=== PATIENT | female | born 2005 | race Two or more races ===

== ENCOUNTER 2023-12-11 09:53 | Outpatient (AMB) | payer BC, SELFPAY ==
[2023-12-11 10:02] VITALS: BP 100/66; PULSE 67; O2SAT 98; BMI 18.5
--- NOTE | 2023-12-11 10:02 | MHC.PC.OV ---
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 Allergies No Known Allergies Allergy (Verified 12/11/23 10:08) Medication List - Last Reconciled 12/11/23 by Johnathan Dewitt MD No Known Home Meds Tobacco use date assessed: 12/11/23 Dental Screening Dental Screen Date: 12/11/23 Did you have a dental visit in the last 12 months?: Yes Did you have a dental problem in the last 6 months where you did not have access to dental care?: No Was dental information given to patient?: Patient has dentist HPI EMPLOYEE SERVICES MANAGER/Requesting PE HPI Details New Patient? ?? Prior PCP:?No PCP in a long time, last PCP in [place] Last office visit/CPE:?>4 years Acute issue(s):? Double?vision -Reports double vision when looking at a screen. Started a couple weeks ago. Anxiety -Under anxiety/stress. Has been seeing a therapist. She reports she was diagnosed with generalized anxiety disorder. -Has not been on any meds for anxiety. ?? PMHx:?Anxiety, Double vision, Autism spectrum SurgHx:?None FHx:?Mom: Healthy. Dad: HTN. GM: HTN. GF: HTN SocHx:?Nonsmoker. EtOH none. No drugs. HPI Comments History of Present Illness Details Documentation assistance for Johnathan Dewitt MD, was provided by [employer],? Farm Contractor Buyer on 12/11/2023 at 10:34 AM EST. I, Dr. Dewitt, have read, observed, and verified documentation. [facility] Medical History (Updated 12/11/23 @ 10:58 by Johnathan Dewitt MD) Anxiety Autism No pertinent past medical history Surgical History (Updated 12/11/23 @ 10:10 by Nat Vieira CMA) No pertinent past surgical history Family History (Updated 12/11/23 @ 10:13 by Nat Vieira CMA) Father High blood pressure Maternal Grandmother High blood pressure Paternal Grandmother High blood pressure Social History (Updated 12/11/23 @ 10:18 by Nat Vieira CMA) Household Members: Family Both parents involved: Yes Caregiver staying overnight: No Housing: House Are you a primary career portals teacher to a significant other at home: No Do you presently have visiting nurse or other home services: No 75 years or older and lives alone: No Alcohol intake: never Patient Tobacco Use Status: Never used Tobacco e-Cigarette/Vaping Use: Never Used Use of substances other than those prescribed or required for medical reasons: No Have you been hit, kicked, punched, or otherwise hurt by someone within the past year? If so, by whom?: No Do you feel safe in your current relationship?: No Current Relationship Is there a partner from a previous relationship who is making you feel unsafe now?: No Are you made to feel afraid or neglected: No Special dennis needs: No Are you DNR?: No Advance Directives: No Advance Directives Information Provided: No Advance Directives on File: No Healthcare Proxy: No service: No Current occupational status: student Cognitive needs: No Hearing needs: No Vision needs: No Questionnaire PHQ-9 Over the last 2 weeks, how often have you been bothered by any of the following problems? 1. Little interest or pleasure in doing things: not at all 2. Feeling down, depressed, or hopeless: not at all 3. Trouble falling or staying asleep, or sleeping too much: several days 4. Feeling tired or having little energy: not at all 5. Poor appetite or overeating: not at all 6. Feeling bad about yourself - or that you are a failure or have let yourself or your family down: several days 7. Trouble concentrating on things, such as reading the newspaper or watching television: several days 8. Moving or speaking so slowly that other people could have noticed. Or the opposite - being so fidgety or restless that you have been moving around a lot more than usual: several days 9. Thoughts that you would be better off or of hurting yourself in some way: not at all Total score: 4 Depression Screening Interpretation: Negative Depression Screening Done: Yes 71296 - PHQ-9 Billing: Yes Source: Developed by Drs. Francois L. PratimaElla weber Kurt Kroenke and colleagues, with an educational arash from [employer]. Thrive Questionnaire Date Thrive assessed: 12/11/23 I am a: Patient What is your living situation today?: I have a steady place to live Within the past 12 months, did the food you bought not last and you didn't have the money to get more?: Never true Within the past 12 months, did you worry whether your food would run out before you got money to buy more?: Never true Do you have trouble paying for medicines?: No Do you have trouble getting transportation to medical appointments?: No Do you have trouble paying your heating and electricity bill?: No Do you have trouble taking care of your child, family member or friend?: No Do you have trouble with day-to-day activities such as bathing, preparing meals, shopping, managing finances, etc.?: No Are you currently unemployed and looking for a job?: No Are you interested in more education?: No THRIVE Score: 0 MANOJ-7 AMB Questionnaire MANOJ-7 Date MANOJ - 7 assessed: 12/11/23 Feeling nervous, anxious, or on edge: 3 = Nearly every day Not being able to stop or control worryin = More than half the days Worrying too much about different things: 3 = Nearly every day Trouble relaxin = More than half the days Being so restless that it is hard to sit still: 0 = Not at all Becoming easily annoyed or irritable: 2 = More than half the days Feeling afraid as if something awful might happen: 2 = More than half the days Total MANOJ-7 score (0-4 normal; 5-9 mild; 10-14 moderate; 15-21 severe): 14 Source: Developed by Drs. Francois Andujar, Sanjiv Knox and colleagues, with an educational arash from [employer]. MANOJ-7 Assessment Billing MANOJ-7 Assessment Tool: MANOJ-7 Assessment 11814 Review of Systems Const Denies chills, Denies fatigue, Denies fever(s), Denies headache(s) and Denies weakness ENT Denies dizziness and Denies headache(s) Card Denies dyspnea Resp Denies cough, Denies dyspnea, Denies wheezing and Denies other (shortness of breath) Musc Denies numbness and Denies tingling Neuro Denies dizziness, Denies headache(s), Denies numbness, Denies tingling and Denies weakness Psych Reports anxiety Endo Denies fatigue Aller/Immun Denies wheezing Physical exam (Primary Care) Vital Signs: Last Vital Signs Pulse 67 12/11/23 10:02 BP 100/66 12/11/23 10:02 Pulse Ox 98 12/11/23 10:02 Oxygen Delivery Method Room Air 12/11/23 10:02 BMI result Body Mass Index 18.5 Tobacco/Smoking Status: Tobacco use Status Tobacco use date assessed 12/11/23 12/11/23 10:23 Patient Tobacco Use Status Never used Tobacco 12/11/23 10:23 e-Cigarette/Vaping Use Never Used 12/11/23 10:23 PHQ-9: PHQ-9 Score PHQ-9: Total score 4 12/11/23 10:27 Depression Screening Interpretation: Negative Thrive Assessment: Date of Thrive Assessment Date Thrive assessed 12/11/23 12/11/23 10:23 Const General: well developed; No acute distress Nutritional Appearance: well nourished Orientation/consciousness: patient oriented x3 [facility] Head: Yes normocephalic and Yes atraumatic Eyes General: appearance normal, both eyes and all related structures Pupils: Equal, round and reactive pupils present EOM: EOMs intact bilaterally Resp Effort & Inspection: normal respiratory effort Auscultation: clear to auscultation bilaterally Cardio Rate: regular rate Rhythm: regular rhythm Heart sounds: S1 normal heart sound present, S2 normal heart sound present, no gallops, no murmurs and no rubs Neuro General: patient oriented x3 and gait normal Cranial nerves: Yes CN's II-XII intact bilaterally, Yes Facial sensation intact/muscles of mastication intact, Yes Equal, round and reactive pupils present, Yes Bilaterally intact EOM present, No Nystagmus not present (Some nystagmus of the eye ) and Yes Normal facial strength present Psych Affect: normal affect Office Procedures Vision Screening Right Eye: 20/13 Left Eye: 20/15 Bilateral: 20/10 14289 - Vision Screening Assessment and Plan Assessment & Plan (1) Anxiety: Code(s): F41.9 - Anxiety disorder, unspecified Plan: Patient?followed?by?therapist. We?discussed?1st?and?2nd?line?medications?for?anxiety?and?she?declines?these?for?now. I?let?her?know?that?we?can?readdress?this?if?she?would?like?to?consider?them?at?some?point. (2) Double vision: Code(s): H53.2 - Diplopia Plan: Unclear?cause Mild?nystagmus?with?far?lateral?gaze She?has?been?under?stress?and?studying?and?vision?change?may?be?associated?with?fatigue. The?remainder?of?her?neuro?exam?was?within?normal?limits Referred?to?ophthalmology (3) Autism: Code(s): F84.0 - Autistic disorder Plan: Stable (4) Underweight: Code(s): R63.6 - Underweight Plan: Patient?notes?that?she?has?always?been?very?thin?and?family?is?then?as?well. Denies?any?appetite?problems We?can?monitor (5) Screening for STD (sexually transmitted disease): Code(s): Z11.3 - Encounter for screening for infections with a predominantly sexual mode of transmission Plan: Check?lab (6) Laboratory exam ordered as part of routine general medical examination: Code(s): Z00.00 - Encounter for general adult medical examination without abnormal findings Plan: Check?lab Orders: Orders Complete Blood Count Auto Diff Today Z00.00 - Encounter for general adult medical examination without abnormal findings Lipid Panel Today Z00.00 - Encounter for general adult medical examination without abnormal findings Microalbumin, Random (w Creat) Today I10 - Essential (primary) hypertension TSH reflex Free T4 Today Z00.00 - Encounter for general adult medical examination without abnormal findings Erythrocyte Sedimentation Rate Today H53.2 - Diplopia CRP High Sensitivity Today H53.2 - Diplopia Comprehensive [place]. Panel Fast Today Z00.00 - Encounter for general adult medical examination without abnormal findings UA and rflx microscopic Today Z00.00 - Encounter for general adult medical examination without abnormal findings AMB Vision Screening Today H53.2 - Diplopia Referrals Ophthalmology Referral H53.2 - Diplopia Coding Level of Care Code New Pt Level 3 (30464) Diagnoses Anxiety F41.9 Double vision H53.2 Autism F84.0 Underweight R63.6 Screening for STD (sexually transmitted disease) Z11.3 Laboratory exam ordered as part of routine general medical examination Z00.00 CPT Codes Vision Screening - Vision Screenin - Vision Screening ([id number]) Additional Codes MANOJ-7 Assessment Billing - MANOJ-7 Assessment Tool: MANOJ-7 Assessment 49506 ([id number])
== END 2023-12-11 10:56 | disposition home or self-care (01) ==
PROVIDERS: PCP Family Medicine; Visit Provider Family Medicine
DX: H53.2 Diplopia (principal); F41.9 Anxiety disorder, unspecified; R63.6 Underweight; F84.0 Autistic disorder; Z11.3 Encounter for screening for infections with a predominantly sexual mode of transmission; Z01.01 Encounter for examination of eyes and vision with abnormal findings
CPT/HCPCS: 96127; 99173; 99203

== ENCOUNTER 2023-12-14 10:58 | Outpatient (REF) | payer BC, SELFPAY ==
[2023-12-14 14:07] LABS: Appearance Urine Turbid; Color Urine Yellow; Glucose Urine UA Negative (Negative); Leukocyte Esterase Urine Small (1+) (Negative); Nitrite Urine Negative (Negative); PH 5.5 (5.0-9.0); Specific Gravity - Urine 1.025 (1.005-1.025); UMIC TRIGGER UA YES; Urine Blood Negative (Negative); Urine Ketones Trace mg/dL (Negative); Urine Protein Negative (Neg-Trace)
[2023-12-14 14:09] LABS: Bacteria Urine Trace (None Seen); Hyaline Casts Urine 0-2 /LPF (0-2); RBC Urine 0-2 /HPF (0-2)
[2023-12-14 14:21] LABS: MANUAL DIFF FLAG NO
[2023-12-14 14:26] LABS: Basophils Percent Auto 0.3 % (0-2); Eosinophils Percent Auto 0.8 % (0-4); Hematocrit 39.1 % (37.0-47.0); Hemoglobin 12.7 g/dl (12.0-16.0); Lymphocytes Absolute Auto 1.6 X10*3/uL (1.2-4.9); Mean Corpuscular HGB Conc 32.5 g/dl (31.0-35.0); Mean Corpuscular Hemoglobin 30.2 pg (27.0-33.0); Mean Corpuscular Volume 92.9 fL (80.0-98.0); Mean Platelet Volume 11.7 fL (9.4-12.3); Monocytes Absolute Auto 0.5 X10*3/uL (0.1-1.2); Neutrophils Absolute Auto 1.8 x10*3/uL (2.0-8.3); Neutrophils Percent Auto 45.9 % (45-73); Platelet Count 288 X10*3/uL (160-400); Red Blood Count 4.21 X10*6/uL (4.20-5.50); Red Cell Distribution Width 13.7 % (11.0-16.0); White Blood Count 3.9 X10*3/uL (4.8-10.8)
[2023-12-14 15:02] LABS: Creatinine Urine 218.14 mg/dL; Microalbum/Creatinine Ratio Ur 8.7 ug/mg cr (<30)
[2023-12-14 15:13] LABS: Alanine Aminotransferase 20 U/L (0-31); Albumin Level 4.7 g/dL (3.5-5.0); Alkaline Phosphatase 56 U/L (39-117); Anion Gap 11 (12-20); Aspartate Amino Transferase 20 U/L (5-31); Bilirubin Total 0.9 mg/dL (0.0-1.0); Blood Urea Nitrogen 17 mg/dL (9-16); Calcium 9.9 mg/dL (8.4-10.2); Carbon Dioxide 27 mmol/L (22-29); Chloride 104 mmol/L (96-108); Cholesterol 223 mg/dL (<200); Erythrocyte Sedimentation Rate 7 MM/HR (0-20); Estimated Glomerular Filt Rate > 60; Glucose Fasting 75 mg/dL (60-99); HDL Cholesterol 70 mg/dL (>40); LDL Cholesterol Calculated 143 mg/dL (<100); Potassium 3.7 mmol/L (3.3-5.1); Sodium 138 mmol/L (135-145); Total Protein 8.1 g/dL (6.5-8.0); Triglycerides 54 mg/dL (<150)
[2023-12-14 15:15] LABS: TSH reflex Free T4 1.29 uIU/mL (0.32-4.0)
[2023-12-15 09:22] LABS: CRP High Sensitivity <0.2 mg/L
== END 2023-12-14 10:59 | disposition home or self-care (01) ==
LOC: HO.WFDLDS 10:58
PROVIDERS: Visit Provider Family Medicine
DX: Z00.00 Encounter for general adult medical examination without abnormal findings (principal); H53.2 Diplopia; I10 Essential (primary) hypertension
CPT/HCPCS: 36415; 80053; 80061; 81001; 82043; 82570; 84443; 85025; 85652; 86141

== ENCOUNTER 2024-03-14 10:19 | Outpatient (AMB) | payer OTHER, SELFPAY ==
--- NOTE | 2024-03-14 10:32 | MHC.PC.OV ---
Vital Signs 03/14/24 10:39 Height 5 ft 2 in Weight 106 lb 6 oz BMI 19.5 BP 90/58 L Blood Pressure Location Lt brachial Position Sitting Respiration 12 Pulse 62 Pulse Source Pulse Oximeter Temp 97.7 F Temp Source Tympanic Pulse Oximetry (%) 100 Oxygen Delivery Method Room Air Intake Visit Reasons: CPE with f/u labs and health Intake Note: CPE Is last menstrual period known: Yes Last menstrual period: 02/28/24 Post menopausal: No Patient : No Allergies No Known Allergies Allergy (Verified 03/14/24 10:33) Tobacco use date assessed: 03/14/24 Dental Screening Dental Screen Date: 03/14/24 Did you have a dental visit in the last 12 months?: Yes Did you have a dental problem in the last 6 months where you did not have access to dental care?: No Was dental information given to patient?: Patient has dentist HPI HPI Comments History of Present Illness Details This is a 18 year old female with a pmhx of autism, double vision, low weight and anxiety presenting for a physical exam. We reviewed her lab results. She has mild hyperlipidemia. WBC also mildly decreased and total protein 8.1. She will repeat these tests. Reviewed lifestyle modifications for hyperlipidemia. TSH wnl. She gained weight since last visit. States it is a family trait to be low weight. She saw the eye doctor for the double vision she reported to Dr. Dewitt. She is getting a second opinion. She continues to see a therapist for anxiety. ROS: Constitutional: No unexplained weight loss, fever, chills, fatigue or night sweats. Eyes: No eye pain, eye redness, eye discharge. ENT: No hearing loss, sneezing, congestion, runny nose or sore throat. Respiratory: No shortness of breath, cough or sputum production. Cardiovascular: No chest pain, chest pressure or chest discomfort. No palpitations or pedal edema. Gastrointestinal: No anorexia, nausea, vomiting or diarrhea. No abdominal pain or blood in stool. Genitourinary: No dysuria, hematuria, urinary frequency. Neurologic: No headache, dizziness, syncope, unilateral weakness, ataxia, numbness or tingling in the extremities. Musculoskeletal: No muscle pain, back pain, joint pain or swelling. Hematologic/Lymphatics: No bleeding or bruising. No painful lymph nodes. Skin: No rash or itching. Endocrine: No cold or heat intolerance. No polyuria or polydipsia. Psychiatric: No depression. No SI/HI. Physical exam: Constitutional: Alert, in no distress. Head: Normocephalic. Eyes: Pupils are equal, round and reactive to light. Extraocular muscles intact. Ear, Nose and Throat: Canals clear. TMs normal. Normal nasal mucosa. No nasal discharge. No oral lesions. Neck: Supple, Full range of motion. No lymphadenopathy. No palpable thyroid masses. Respiratory: Clear to auscultation. Cardiovascular: S1 S2 regular. No murmurs. Gastrointestinal: Abdomen soft, non-tender, non-distended. Normal bowel sounds. No palpable masses. Neurologic: No focal neurological deficits. Symmetric patellar reflexes. Moves all extremities spontaneously. Sensation intact bilaterally. Skin: No rashes Musculoskeletal: No gross deformities. Normal range of motion. Extremities: Warm and well perfused. No clubbing, cyanosis or edema. 3+ peripheral pulses bilaterally. Psychiatric: Normal mood and affect [facility] Medical History (Updated 03/14/24 @ 12:55 by SALENA Sue) Hyperlipidemia Abnormal CBC Anxiety Autism No pertinent past medical history Surgical History (Updated 12/11/23 @ 10:10 by Nat Vieira CMA) No pertinent past surgical history Family History (Updated 12/11/23 @ 10:13 by Nat Vieira CMA) Father High blood pressure Maternal Grandmother High blood pressure Paternal Grandmother High blood pressure Social History (Updated 03/14/24 @ 10:34 by Fuentes Medina MA) Household Members: Family Housing: House Are you a primary post anesthesia care unit nurse to a significant other at home: No Do you presently have visiting nurse or other home services: No Alcohol intake: never Patient Tobacco Use Status: Never used Tobacco e-Cigarette/Vaping Use: Never Used Special dennis needs: No service: No Current occupational status: student Cognitive needs: No Hearing needs: No Vision needs: No Female Reproductive History Menstrual Date of last menstrual period: 02/28/24 Questionnaire PHQ-9 Over the last 2 weeks, how often have you been bothered by any of the following problems? 1. Little interest or pleasure in doing things: not at all 2. Feeling down, depressed, or hopeless: not at all 3. Trouble falling or staying asleep, or sleeping too much: not at all 4. Feeling tired or having little energy: not at all 5. Poor appetite or overeating: not at all 6. Feeling bad about yourself - or that you are a failure or have let yourself or your family down: not at all 7. Trouble concentrating on things, such as reading the newspaper or watching television: nearly every day 8. Moving or speaking so slowly that other people could have noticed. Or the opposite - being so fidgety or restless that you have been moving around a lot more than usual: not at all 9. Thoughts that you would be better off or of hurting yourself in some way: not at all Total score: 3 Depression Screening Interpretation: Negative Depression Screening Done: Yes 12332 - PHQ-9 Billing: Yes Source: Developed by Drs. Francois Andujar, Ella Richmond, Sanjiv Christy and colleagues, with an educational arash from [employer]. Thrive Questionnaire Date Thrive assessed: 03/14/24 I am a: Patient What is your living situation today?: I have a steady place to live Within the past 12 months, did the food you bought not last and you didn't have the money to get more?: Never true Within the past 12 months, did you worry whether your food would run out before you got money to buy more?: Never true Do you have trouble paying for medicines?: No Do you have trouble getting transportation to medical appointments?: No Do you have trouble paying your heating and electricity bill?: No Do you have trouble taking care of your child, family member or friend?: No Do you have trouble with day-to-day activities such as bathing, preparing meals, shopping, managing finances, etc.?: No Are you currently unemployed and looking for a job?: Yes Are you interested in more education?: Yes Please select the resources that you would like help with: None Currently or been in a relationship where the following occur: No concerns reported THRIVE Score: 0 AUDIT C Alcohol Use Questionnaire (AUDIT-C) 1. How often do you have a drink containing alcohol?: Never 3. How often do you have six or more drinks on one occasion?: Never Total Score: 0 Score Reviewed/Action Taken: Yes MANOJ-7 AMB Questionnaire MANOJ-7 Date MANOJ - 7 assessed: 03/14/24 Feeling nervous, anxious, or on edge: 3 = Nearly every day Not being able to stop or control worryin = Nearly every day Worrying too much about different things: 3 = Nearly every day Trouble relaxin = Nearly every day Being so restless that it is hard to sit still: 0 = Not at all Becoming easily annoyed or irritable: 1 = Several days Feeling afraid as if something awful might happen: 2 = More than half the days Total MANOJ-7 score (0-4 normal; 5-9 mild; 10-14 moderate; 15-21 severe): 15 Source: Developed by Drs. Francois Andujar, Ella Richmond, Sanjiv Christy and colleagues, with an educational arash from [employer]. MANOJ-7 Assessment Billing MANOJ-7 Assessment Tool: MANOJ-7 Assessment 93819 Physical exam (Primary Care) Vital Signs: Last Vital Signs Temp 97.7 F 03/14/24 10:39 Pulse 62 03/14/24 10:39 Resp 12 03/14/24 10:39 BP 90/58 L 03/14/24 10:39 Pulse Ox 100 03/14/24 10:39 Oxygen Delivery Method Room Air 03/14/24 10:39 BMI result Body Mass Index 19.5 Tobacco/Smoking Status: Tobacco use Status Tobacco use date assessed 03/14/24 03/14/24 10:42 Patient Tobacco Use Status Never used Tobacco 03/14/24 10:42 e-Cigarette/Vaping Use Never Used 03/14/24 10:42 PHQ-9: PHQ-9 Score PHQ-9: Total score 3 03/14/24 12:57 Depression Screening Interpretation: Negative Thrive Assessment: Date of Thrive Assessment Date Thrive assessed 03/14/24 03/14/24 10:42 Currently or been in a relationship where the following occur: No concerns reported Assessment and Plan Assessment & Plan (1) Routine physical examination: Code(s): Z00.00 - Encounter for general adult medical examination without abnormal findings Plan: Patient is seen today for a routine physical. As part of this visit we reviewed the following issues, which are considered and essential part of preventative health in this age group: - Breast Cancer screening - Annual Tire Shop Manager exam -due [facility] 2024. - Blood pressure screening - Cholesterol screening - Osteoporosis prevention including calcium/vitamin D intake, weight bearing exercise & smoking cessation - Nutritional and exercise counseling - Counseling of injury prevention including fire prevention, smoke alarms and seat belt usage - Screening for depression - Prevention of and/or testing for infectious diseases - patient declines since she is not SA - Education about skin cancer - Recommendation of an eye exam - Screening for substance abuse (2) Double vision: Code(s): H53.2 - Diplopia (3) Anxiety: Code(s): F41.9 - Anxiety disorder, unspecified (4) Abnormal CBC: Code(s): R79.89 - Other specified abnormal findings of blood chemistry (5) Hyperlipidemia: Code(s): E78.5 - Hyperlipidemia, unspecified Qualifiers: Hyperlipidemia type: pure hypercholesterolemia Qualified Code(s): E78.00 - Pure hypercholesterolemia, unspecified Plan CPE in 1 year. Orders: Orders Total Protein Today R79.89 - Other specified abnormal findings of blood chemistry Complete Blood Count Auto Diff Today R79.89 - Other specified abnormal findings of blood chemistry Coding Level of Care Code Est Pt Prev Care 18-39y(54370) Diagnoses Routine physical examination Z00.00 Double vision H53.2 Anxiety F41.9 Abnormal CBC R79.89 Pure hypercholesterolemia E78.00 Hyperlipidemia type: pure hypercholesterolemia Additional Codes MANOJ-7 Assessment Billing - MANOJ-7 Assessment Tool: MANOJ-7 Assessment 14693 ([id number])
[2024-03-14 10:39] VITALS: BP 90/58; PULSE 62; RESP 12; TEMP 36.5; O2SAT 100; BMI 19.5
== END 2024-03-14 11:12 | disposition home or self-care (01) ==
PROVIDERS: PCP Family Medicine; Visit Provider Physician Assistant Medical
DX: Z00.00 Encounter for general adult medical examination without abnormal findings (principal); H53.2 Diplopia; F41.9 Anxiety disorder, unspecified; R79.89 Other specified abnormal findings of blood chemistry; E78.00 Pure hypercholesterolemia, unspecified
CPT/HCPCS: 99395

== ENCOUNTER 2024-03-14 11:29 | Outpatient (REF) | payer BC, SELFPAY ==
[2024-03-14 14:27] LABS: MANUAL DIFF FLAG NO
[2024-03-14 14:41] LABS: Basophils Percent Auto 0.5 % (0-2); Eosinophils Percent Auto 0.6 % (0-4); Hematocrit 41.1 % (37.0-47.0); Hemoglobin 13.3 g/dl (12.0-16.0); Imm Gran Abs Auto 0.02 X10*3/uL (0.00-0.03); Imm Gran Pct Auto 0.3 % (0.0-0.4); Lymphocytes Percent Auto 32.2 % (20-40); Mean Corpuscular HGB Conc 32.4 g/dl (31.0-35.0); Mean Corpuscular Hemoglobin 30.4 pg (27.0-33.0); Mean Corpuscular Volume 94.1 fL (80.0-98.0); Mean Platelet Volume 11.5 fL (9.4-12.3); Monocytes Absolute Auto 0.6 X10*3/uL (0.1-1.2); Monocytes Percent Auto 10.2 % (2-11); Neutrophils Absolute Auto 3.5 x10*3/uL (2.0-8.3); Neutrophils Percent Auto 56.2 % (45-73); Platelet Count 294 X10*3/uL (160-400); Red Blood Count 4.37 X10*6/uL (4.20-5.50); Red Cell Distribution Width 13.7 % (11.0-16.0); White Blood Count 6.3 X10*3/uL (4.8-10.8)
[2024-03-14 15:02] LABS: Total Protein 7.8 g/dL (6.5-8.0)
== END 2024-03-14 11:30 | disposition home or self-care (01) ==
LOC: HO.WFDLDS 11:29
PROVIDERS: Visit Provider Physician Assistant Medical
DX: R79.89 Other specified abnormal findings of blood chemistry (principal)
CPT/HCPCS: 36415; 84155; 85025

== ENCOUNTER 2025-03-20 08:56 | Outpatient (AMB) | payer OTHER, SELFPAY ==
[2025-03-20 08:59] VITALS: BP 108/62; PULSE 72; O2SAT 99; BMI 19.0
--- NOTE | 2025-03-20 08:59 | MHC.PC.OV ---
Vital Signs 03/20/25 08:59 Height 5 ft 2 in Weight 104 lb 2 oz BMI 19.0 BP 108/62 Blood Pressure Location Rt brachial Position Sitting Pulse 72 Pulse Source Pulse Oximeter Pulse Oximetry (%) 99 Oxygen Delivery Method Room Air Intake Visit Reasons: cpe Allergies No Known Allergies Allergy (Verified 03/20/25 09:01) Medication List - Last Reconciled 03/20/25 by Johnathan Dewitt MD No Known Home Meds Tobacco use date assessed: 03/20/25 Dental Screening Dental Screen Date: 03/20/25 Did you have a dental visit in the last 12 months?: Yes Did you have a dental problem in the last 6 months where you did not have access to dental care?: No Was dental information given to patient?: Patient has dentist HPI cpe HPI Details 19 y/o female presents for a CPE with f.u labs and health maintenance. No recent labs to review. Had talked about some double vision last year. Had seen an eye doctor but she notes she had declined further work-up. HPI Comments History of Present Illness Details Documentation assistance for Johnathan Dewitt MD, was provided by [employer], Printing Equipment Mechanic Apprentice on at 9::09 AM BENITA. I, Dr. Dewitt, have read, observed, and verified documentation. [facility] Medical History Hyperlipidemia Abnormal CBC Anxiety Autism No pertinent past medical history Surgical History No pertinent past surgical history Family History Father High blood pressure Maternal Grandmother High blood pressure Paternal Grandmother High blood pressure Social History Household Members: Family Both parents involved: Yes Caregiver staying overnight: No Housing: House Are you a primary career center director to a significant other at home: No Do you presently have visiting nurse or other home services: No 75 years or older and lives alone: No Alcohol intake: never Patient Tobacco Use Status: Never used Tobacco e-Cigarette/Vaping Use: Never Used Special dennis needs: No service: No Current occupational status: student Cognitive needs: No Hearing needs: No Vision needs: No Questionnaire PHQ-9 Over the last 2 weeks, how often have you been bothered by any of the following problems? 1. Little interest or pleasure in doing things: not at all 2. Feeling down, depressed, or hopeless: not at all 3. Trouble falling or staying asleep, or sleeping too much: not at all 4. Feeling tired or having little energy: not at all 5. Poor appetite or overeating: not at all 6. Feeling bad about yourself - or that you are a failure or have let yourself or your family down: not at all 7. Trouble concentrating on things, such as reading the newspaper or watching television: several days 8. Moving or speaking so slowly that other people could have noticed. Or the opposite - being so fidgety or restless that you have been moving around a lot more than usual: not at all 9. Thoughts that you would be better off or of hurting yourself in some way: not at all Total score: 1 Depression Screening Interpretation: Negative Depression Screening Done: Yes 33345 - PHQ-9 Billing: Yes Source: Developed by Drs. Francois Andujar, Ella Richmond, Sanjiv Christy and colleagues, with an educational arash from [email or web address]. Thrive Questionnaire Date Thrive assessed: 03/20/25 I am a: Patient What is your living situation today?: I have a steady place to live Within the past 12 months, did the food you bought not last and you didn't have the money to get more?: Never true Within the past 12 months, did you worry whether your food would run out before you got money to buy more?: Never true Do you have trouble paying for medicines?: I choose not to answer this question Do you have trouble getting transportation to medical appointments?: No Do you have trouble paying your heating and electricity bill?: No Do you have trouble taking care of your child, family member or friend?: I choose not to answer this question Do you have trouble with day-to-day activities such as bathing, preparing meals, shopping, managing finances, etc.?: No Are you currently unemployed and looking for a job?: Yes Are you interested in more education?: I choose not to answer this question Please select the resources that you would like help with: Job search/training Currently or been in a relationship where the following occur: No concerns reported THRIVE Score: 0 AUDIT C Alcohol Use Questionnaire (AUDIT-C) 1. How often do you have a drink containing alcohol?: Never 3. How often do you have six or more drinks on one occasion?: Never Total Score: 0 MANOJ-7 AMB Questionnaire MANOJ-7 Date MANOJ - 7 assessed: 03/20/25 Feeling nervous, anxious, or on edge: 0 = Not at all Not being able to stop or control worryin = Not at all Worrying too much about different things: 0 = Not at all Trouble relaxin = Not at all Being so restless that it is hard to sit still: 0 = Not at all Becoming easily annoyed or irritable: 0 = Not at all Feeling afraid as if something awful might happen: 0 = Not at all Total MANOJ-7 score (0-4 normal; 5-9 mild; 10-14 moderate; 15-21 severe): 0 Source: Developed by Drs. Francois Andujar, Ella Richmond, Sanjiv Christy and colleagues, with an educational arash from [email or web address]. MANOJ-7 Assessment Billing MANOJ-7 Assessment Tool: MANOJ-7 Assessment 23064 Review of Systems Const Denies chills, Denies fatigue, Denies fever(s), Denies headache(s) and Denies weakness Eyes Denies change in vision ENT Denies dizziness, Denies headache(s), Denies hearing loss, Denies nasal congestion, Denies sinus pain, Denies sinus pressure and Denies sore throat Card Denies chest pain, Denies lightheadedness, Denies dyspnea and Denies other (palpitations) Resp Denies cough, Denies dyspnea and Denies wheezing GI Denies abdominal pain, Denies melena, Denies hematochezia, Denies change in bowel habits, Denies dyspepsia and Denies nausea Denies hematuria and Denies dysuria Musc Denies abnormal gait, Denies myalgias, Denies arthralgias, Denies numbness and Denies tingling Skin/Breast Denies rash, Denies unusual bruising and Denies wounds Neuro Denies abnormal gait, Denies dizziness, Denies headache(s), Denies memory loss, Denies numbness, Denies Sensory deficit (Neuro), Denies tingling and Denies weakness Psych Denies anxiety, Denies depression and Denies memory loss Endo Denies cold intolerance, Denies fatigue, Denies heat intolerance, Denies polydipsia and Denies polyuria Robert/Lymph Denies easy bleeding and Denies easy bruising Aller/Immun Denies wheezing Physical exam (Primary Care) Vital Signs: Last Vital Signs Pulse 72 03/20/25 08:59 BP 108/62 03/20/25 08:59 Pulse Ox 99 03/20/25 08:59 Oxygen Delivery Method Room Air 03/20/25 08:59 BMI result Body Mass Index 19.0 Tobacco/Smoking Status: Tobacco use Status Tobacco use date assessed 03/20/25 03/20/25 09:03 Patient Tobacco Use Status Never used Tobacco 03/20/25 09:03 e-Cigarette/Vaping Use Never Used 03/20/25 09:03 PHQ-9: PHQ-9 Score PHQ-9: Total score 1 03/20/25 09:09 Depression Screening Interpretation: Negative Thrive Assessment: Date of Thrive Assessment Date Thrive assessed 03/20/25 03/20/25 09:03 Currently or been in a relationship where the following occur: No concerns reported Const General: no acute distress, well developed, alert and awake Nutritional Appearance: well nourished Orientation/consciousness: patient oriented x3 HENMT Head: Yes normocephalic and Yes atraumatic Ears: hearing grossly normal bilaterally and TM's normal bilaterally General nose exam: Normal external nose present and Normal nares present Mouth: Normal oral and palatal mucosa present and moist mucous membranes Teeth and gingiva: dentition normal Throat: Yes posterior oropharynx normal Eyes General: appearance normal, both eyes and all related structures Pupils: Equal, round and reactive pupils present and Pupil accommodation reflex normal EOM: EOMs intact bilaterally Neck Neck: Yes normal visual inspection, Yes no lymphadenopathy and Yes trachea midline Thyroid: Thyroid normal Carotids: no bruits Lymphatic: no lymphadenopathy noted Chest Chest palpation & inspection: normal inspection of the chest Resp Effort & Inspection: normal respiratory effort Auscultation: clear to auscultation bilaterally Cardio Rate: regular rate Rhythm: regular rhythm Heart sounds: S1 normal heart sound present, S2 normal heart sound present, no gallops, no murmurs and no rubs Bruits: no abdominal aortic bruits and no carotid bruits GI Palpation (GI): No Abdominal aortic bruit present, Soft to palpation, nontender, No hepatosplenomegaly present and No Rebound tenderness present Auscultation: normal bowel sounds General: Yes no CVA tenderness Back/Spine/Pelvis Back: no CVA tenderness Cervical Spine: cervical ROM normal and No Cervical spine tenderness Thoracic/Lumbar Spine: thoraco-lumbar ROM normal, No pain with thoraco-lumbar ROM, No thoracic spinal tenderness and No lumbar spinal tenderness Skin Lesions: no lesions Rashes: no rashes Trauma: no lacerations or abrasions Wounds: no wounds Nails: normal Neuro General: patient oriented x3 Cranial nerves: Yes Equal, round and reactive pupils present Cognition (Neuro): normal cognition Gait exam (Neuro): Normal gait present Motor exam (neuro): 5/5 motor strength present throughout Sensory Exam: No Sensory deficit (Neuro) Deep tendon reflexes (DTR's): Right patellar reflex intensity grade: 2+ and Left patellar reflex intensity grade: 2+ Extrem General: Yes normal to inspection and No edema Psych Appearance: grossly normal Affect: normal affect Attitude: cooperative Thought process: Normal thought process present Coding Level of Care Code Est Pt Level 3 (64811) Est Pt Prev Care 18-39y(78912) Diagnoses Adult general medical exam Z00.00 Double vision H53.2 Screening for cervical cancer Z12.4 Additional Codes MANOJ-7 Assessment Billing - MANOJ-7 Assessment Tool: MANOJ-7 Assessment 79451 ([id number]) PHQ-9 - 85009 - PHQ-9 Billing: Yes ([id number]) Assessment & Plan Assessment & Plan (1) Adult general medical exam: Code(s): Z00.00 - Encounter for general adult medical examination without abnormal findings Category: Medical Plan: 19-year-old female presents for complete physical exam Exam all within normal limits Encouraged healthy diet and exercise (2) Double vision: Code(s): H53.2 - Diplopia Category: Medical Plan: Patient says this has resolved. She said that she did see the alteration hand Follow-up with ophthalmology as recommended (3) Screening for cervical cancer: Code(s): Z12.4 - Encounter for screening for malignant neoplasm of cervix Category: Medical Plan: Patient is 19. Has not had any screening for cervical cancer Referred to database modeler Orders: Orders Complete Blood Count Auto Diff Today Z00.00 - Encounter for general adult medical examination without abnormal findings Comprehensive [place]. Panel Fast Today Z00.00 - Encounter for general adult medical examination without abnormal findings Lipid Panel Today Z00.00 - Encounter for general adult medical examination without abnormal findings Microalbumin, Random (w Creat) Today I10 - Essential (primary) hypertension TSH reflex Free T4 Today Z00.00 - Encounter for general adult medical examination without abnormal findings Vitamin B12 and Folate Today E53.8 - Deficiency of other specified B group vitamins UA CC w/rflx Micro + Cult Today Z00.00 - Encounter for general adult medical examination without abnormal findings Referrals MOLD BREAKER Referral Z12.4 - Encounter for screening for malignant neoplasm of cervix
== END 2025-03-20 09:17 | disposition home or self-care (01) ==
LOC: HO.HMCFM 08:57
PROVIDERS: PCP Family Medicine; Visit Provider Family Medicine
DX: Z00.00 Encounter for general adult medical examination without abnormal findings (principal); H53.2 Diplopia

== ENCOUNTER 2025-03-20 08:56 | Outpatient (REF) | payer OTHER, SELFPAY ==
[2025-03-20 11:21] LABS: MANUAL DIFF FLAG NO
[2025-03-20 11:29] LABS: Hematocrit 39.1 % (37.0-47.0); Hemoglobin 12.7 g/dl (12.0-16.0); Imm Gran Abs Auto 0.01 X10*3/uL (0.00-0.03); Imm Gran Pct Auto 0.2 % (0.0-0.4); Lymphocytes Absolute Auto 1.6 X10*3/uL (1.2-4.9); Mean Corpuscular HGB Conc 32.5 g/dl (31.0-35.0); Mean Corpuscular Hemoglobin 29.7 pg (27.0-33.0); Mean Corpuscular Volume 91.4 fL (80.0-98.0); NRBC Abs Auto 0.000 X10*3/uL (0.0-0.012); NRBC Pct Auto 0.0 /100WBC (0.0-0.2); Platelet Count 299 X10*3/uL (160-400); Red Blood Count 4.28 X10*6/uL (4.20-5.50); White Blood Count 4.8 X10*3/uL (4.8-10.8)
[2025-03-20 11:35] LABS: Appearance Urine Clear; Glucose Urine UA Negative (Negative); PH 5.5 (5.0-9.0); Specific Gravity - Urine 1.025 (1.005-1.025)
[2025-03-20 12:14] LABS: Alanine Aminotransferase 20 U/L (0-31); Albumin Level 4.7 g/dL (3.5-5.0); Alkaline Phosphatase 65 U/L (39-117); Anion Gap 12 (12-20); Aspartate Amino Transferase 21 U/L (5-31); Blood Urea Nitrogen 18 mg/dL (9-16); Calcium 9.3 mg/dL (8.4-10.2); Carbon Dioxide 26 mmol/L (22-29); Chloride 106 mmol/L (96-108); Cholesterol 173 mg/dL (<200); Estimated Glomerular Filt Rate > 60; HDL Cholesterol 67 mg/dL (>40); Potassium 4.2 mmol/L (3.3-5.1); Sodium 140 mmol/L (135-145); Total Protein 7.7 g/dL (6.5-8.0); Triglycerides 44 mg/dL (<150)
[2025-03-20 12:16] LABS: Microalbum/Creatinine Ratio Ur 6.3 ug/mg cr (<30)
[2025-03-20 12:39] LABS: Folate 9.8 ng/mL (> or = 4.0); Vitamin B12 438 pg/mL (200-900)
== END 2025-03-20 08:57 | disposition home or self-care (01) ==
LOC: HO.WFDLDS 08:56
PROVIDERS: PCP Family Medicine; Visit Provider Family Medicine
DX: Z00.00 Encounter for general adult medical examination without abnormal findings (principal); H53.2 Diplopia; E53.8 Deficiency of other specified B group vitamins; I10 Essential (primary) hypertension; Z13.31 Encounter for screening for depression; Z13.39 Encounter for screening examination for other mental health and behavioral disorders
CPT/HCPCS: 36415; 80053; 80061; 81003; 82043; 82570; 82607; 82746; 84443; 85025; 96127; 99395